=== PATIENT | male | born 1960 | race Caucasian/White ===

== ENCOUNTER → 2020-08-15 | Outpatient (CLI) | payer BC ==
[2020-08-15 09:23] LABS: EOS # 0.1 (0.04-0.40); EOS % 1.1 % (0.0-4.0); HEMOGLOBIN 15.3 g/dL (13.5-18.0); LYMPH# 1.4 (1.50-4.00); MEAN CELL VOLUME 93 fl (78-100); MEAN CORPUSCULAR HEMOGLOBIN 30 pg (27-31); MEAN CORPUSCULAR HGB CONC 32 g/dL (33-37); MEAN PLATELET VOLUME 10.8 fl (7.4-10.4); MONO # 0.6 (0.20-0.80); NEU # 4.5 (1.40-6.50); PLATELET COUNT 252 K/mm3 (130-400); RED BLOOD COUNT 5.16 M/mm3 (4.20-5.60); RED CELL DISTRIBUTION WIDTH 12.9 % (11.5-14.5); WHITE BLOOD COUNT 6.6 K/mm3 (4.8-10.8)
[2020-08-15 09:44] LABS: POTASSIUM 4.1 mmol/L (3.5-5.1)
[2020-08-15 09:45] LABS: ALBUMIN 4.6 g/dL (3.5-5.0)
[2020-08-15 09:46] LABS: CALCIUM 9.7 mg/dL (8.3-10.5)
[2020-08-15 09:47] LABS: TOTAL PROTEIN 7.4 g/dL (6.4-8.3)
[2020-08-15 09:49] LABS: TOTAL BILIRUBIN 0.8 mg/dL (0.2-1.2)
== END ==
LOC: RAD 08:55
PROVIDERS: Physician Assistant
DX: Z00.00 Encounter for general adult medical examination without abnormal findings (principal); Z12.5 Encounter for screening for malignant neoplasm of prostate; Z13.1 Encounter for screening for diabetes mellitus; E78.5 Hyperlipidemia, unspecified

== ENCOUNTER → 2021-08-13 | Outpatient (CLI) | payer BC ==
[2021-08-13 09:55] LABS: BASO # 0.03 K/mm3 (0.02-0.10); EOS % 1.9 % (0.0-4.0); HEMATOCRIT 46.9 % (42.0-52.0); HEMOGLOBIN 15.4 g/dL (13.5-18.0); MEAN CELL VOLUME 92 fl (78-100); MEAN CORPUSCULAR HEMOGLOBIN 30 pg (27-31); MEAN CORPUSCULAR HGB CONC 33 g/dL (33-37); MEAN PLATELET VOLUME 10.9 fl (7.4-10.4); MONO # 0.49 K/mm3 (0.20-0.80); PLATELET COUNT 205 K/mm3 (130-400); RED BLOOD COUNT 5.11 M/mm3 (4.20-5.60); RED CELL DISTRIBUTION WIDTH 12.3 % (11.5-14.5); WHITE BLOOD COUNT 5.3 K/mm3 (4.8-10.8)
[2021-08-13 10:37] LABS: POTASSIUM 4.2 mmol/L (3.5-5.1)
[2021-08-13 10:38] LABS: ALBUMIN 4.5 g/dL (3.5-5.0)
[2021-08-13 10:39] LABS: CALCIUM 9.4 mg/dL (8.3-10.5)
[2021-08-13 10:40] LABS: TOTAL PROTEIN 6.9 g/dL (6.4-8.3)
[2021-08-13 10:42] LABS: TOTAL BILIRUBIN 0.5 mg/dL (0.2-1.2)
== END ==
LOC: LAB 09:21
PROVIDERS: Physician Assistant
DX: Z00.00 Encounter for general adult medical examination without abnormal findings (principal); Z12.5 Encounter for screening for malignant neoplasm of prostate; Z13.29 Encounter for screening for other suspected endocrine disorder; I10 Essential (primary) hypertension; E78.5 Hyperlipidemia, unspecified

== ENCOUNTER → 2021-09-03 | Outpatient (CLI) | payer BC | LOC: RAD 11:14 | DX: M17.12 Unilateral primary osteoarthritis, left knee (principal) ==

== ENCOUNTER → 2022-09-02 | Outpatient (CLI) | payer BC ==
[~2022-09-02] MED LIST: KETOROLAC10 MG PO; LIPITOR20 M2 PO; LISINOPRIL AND1 TA1 PO
[2022-09-02 10:51] LABS: POTASSIUM 3.9 mmol/L (3.5-5.1)
[2022-09-02 10:52] LABS: ALBUMIN 4.7 g/dL (3.5-5.0); BASO # 0.02 K/mm3 (0.02-0.10); EOS # 0.09 K/mm3 (0.04-0.40); EOS % 1.4 % (0.0-4.0); HEMATOCRIT 48.6 % (42.0-52.0); HEMOGLOBIN 16.1 g/dL (13.5-18.0); LYMPH# 1.83 K/mm3 (1.50-4.00); MEAN CELL VOLUME 92 fl (78-100); MEAN CORPUSCULAR HEMOGLOBIN 31 pg (27-31); MEAN CORPUSCULAR HGB CONC 33 g/dL (33-37); MEAN PLATELET VOLUME 10.6 fl (7.4-10.4); MONO # 0.49 K/mm3 (0.20-0.80); NEU # 3.85 K/mm3 (1.40-6.50); PLATELET COUNT 220 K/mm3 (130-400); RED BLOOD COUNT 5.27 M/mm3 (4.20-5.60); RED CELL DISTRIBUTION WIDTH 12.2 % (11.5-14.5); WHITE BLOOD COUNT 6.3 K/mm3 (4.8-10.8)
[2022-09-02 10:53] LABS: CALCIUM 9.7 mg/dL (8.3-10.5)
[2022-09-02 10:54] LABS: TOTAL PROTEIN 7.4 g/dL (6.4-8.3)
[2022-09-02 10:56] LABS: TOTAL BILIRUBIN 0.6 mg/dL (0.2-1.2)
== END ==
LOC: LAB 10:26
PROVIDERS: Physician Assistant
DX: Z00.00 Encounter for general adult medical examination without abnormal findings (principal); Z13.29 Encounter for screening for other suspected endocrine disorder; Z13.1 Encounter for screening for diabetes mellitus; Z12.5 Encounter for screening for malignant neoplasm of prostate; E78.5 Hyperlipidemia, unspecified; I10 Essential (primary) hypertension; K90.9 Intestinal malabsorption, unspecified; Z87.442 Personal history of urinary calculi

== ENCOUNTER 2023-06-05 17:40 | Emergency (ER) | payer OTHER ==
[~2023-06-05] VITALS: Ht 177.8 cm; Wt 109.1 kg
[2023-06-05] MEDS ORDERED: AMOXICILLIN AND1 TA2 PO (18:59)
[2023-06-05 19:06] VITALS: BP 147/99
== END 2023-06-05 19:06 | disposition home or self-care (01) ==
LOC: ED 17:40
DX: S51.852A Open bite of left forearm, initial encounter (principal); W54.0XXA Bitten by dog, initial encounter

== ENCOUNTER 2024-04-17 13:19 | Emergency (ER) | payer BC ==
[~2024-04-17] VITALS: Ht 177.8 cm; Wt 109.1 kg
[~2024-04-17 13:19] MED LIST changes: +AMOXICILLIN AND1 TA2 PO
[2024-04-17 14:22] LABS: BASO # 0.04 K/mm3 (0.02-0.10); EOS # 0.05 K/mm3 (0.04-0.40); EOS % 0.4 % (0.0-4.0); HEMATOCRIT 46.4 % (42.0-52.0); HEMOGLOBIN 15.4 g/dL (13.5-18.0); LYMPH# 1.07 K/mm3 (1.50-4.00); MEAN CELL VOLUME 93 fl (78-100); MEAN CORPUSCULAR HEMOGLOBIN 31 pg (27-31); MEAN CORPUSCULAR HGB CONC 33 g/dL (33-37); MONO # 0.99 K/mm3 (0.20-0.80); NEU # 9.52 K/mm3 (1.40-6.50); PLATELET COUNT 219 K/mm3 (130-400); RED BLOOD COUNT 4.97 M/mm3 (4.20-5.60); WHITE BLOOD COUNT 11.7 K/mm3 (4.8-10.8)
[2024-04-17 14:26] LABS: ALBUMIN 4.4 g/dL (3.4-4.8)
[2024-04-17 14:27] LABS: CALCIUM 9.4 mg/dL (8.3-10.5)
[2024-04-17 14:28] LABS: TOTAL PROTEIN 6.8 g/dL (6.2-8.1)
[2024-04-17 14:30] LABS: TOTAL BILIRUBIN 0.7 mg/dL (0.2-1.2)
[2024-04-17 14:43] LABS: PH-URINE 8.5 (5.0 - 8.0); URINE APPEARANCE SLIGHTLY CLOUDY (CLEAR); URINE BILIRUBIN NEGATIVE (NEGATIVE); URINE BLOOD 2+ (NEGATIVE); URINE COLOR YELLOW (YELLOW); URINE GLUCOSE NEGATIVE (NEGATIVE); URINE KETONE NEGATIVE (NEGATIVE); URINE LEUKOCYTE ESTERASE NEGATIVE (NEGATIVE); URINE NITRATE NEGATIVE (NEGATIVE); URINE PROTEIN(semi-quant) 1+ (NEGATIVE); URINE WBC 0-1 /hpf (0-3)
[2024-04-17] MEDS ORDERED: NS 1,000 ML IV SCH (15:15)
[2024-04-17] MEDS ORDERED: Iohexol 300 - 100 ML VIAL IV ONE (15:21)
[2024-04-17 16:58] VITALS: BP 153/99
[2024-04-17] MEDS ORDERED: FLOMAX0.4 MG PO (16:59)
[2024-04-17] MEDS ORDERED: PREDNISONE10 MG PO (16:59)
[2024-04-17] MEDS ORDERED: predniSONE 10 MG TAB PO ONE (17:00)
== END 2024-04-17 17:07 | disposition home or self-care (01) ==
LOC: ED 13:19
PROVIDERS: Physician Assistant
DX: N13.2 Hydronephrosis with renal and ureteral calculous obstruction (principal)
CPT/HCPCS: J7030; J7512; Q9967